=== PATIENT | female | born 1960 ===

== ENCOUNTER 2017-11-10 12:30 | Outpatient (CLI) | payer OTHER ==
[~2017-11-10 12:30] MED LIST: LOSARTAN-HCTZ1 EAC1 PO; NABUMETONE500 MG PO; PERCOCET 5-3251 EACH PO; PROCARDIA; SYNTHROID100 MCG PO
== END 2017-11-10 12:32 | disposition home or self-care (01) ==
LOC: RAD 12:30
DX: M12.88 Other specific arthropathies, not elsewhere classified, other specified site (principal); M19.90 Unspecified osteoarthritis, unspecified site

== ENCOUNTER 2021-02-20 13:25 | Outpatient (CLI) | payer OTHER | END 2021-02-20 13:40 | disposition home or self-care (01) | LOC: MRI 13:25 | PROVIDERS: ATTEND Orthopaedic Surgery | DX: S83.242A Other tear of medial meniscus, current injury, left knee, initial encounter (principal); M25.562 Pain in left knee | CPT/HCPCS: 73721 ==